=== PATIENT | female | born 1960 | race Caucasian/White ===

== ENCOUNTER 2019-02-08 21:33 | Emergency (ER) | payer SELFPAY ==
--- NOTE | 2019-02-08 22:36 | ED ---
Complex/Multi-Sys Presentation - HPI Summary HPI Summary: 58 year old female presents with fatigue for past couple days. She states that she has short of breath when she exerts herself. She has no other medical conditions. She denies a history of anemia. She denies any vaginal bleeding. No blood in her stool or dark tarry stool. She denies any chest pain. No recent illness. She is not currently getting any treatment for her basal cell carcinoma. she states that the area has been bleeding on her shoulder. She has had the mass for 16 years. - History Of Current Complaint Chief Complaint: EDGeneral Time Seen by Provider: 02/08/19 22:26 - Allergies/Home Medications Allergies/Adverse Reactions: Allergies Allergy/AdvReac Type Severity Reaction Status Date / Time No Known Allergies Allergy Verified 02/08/19 21:39 PMH/Surg Hx/FS Hx/Imm Hx Endocrine/Hematology History: Denies: Hx Anemia Respiratory History: Denies: Hx Asthma Infectious Disease History: No Infectious Disease History: Denies: Traveled Outside the [place] in Last 30 Days - Family History Known Family History: Positive: Non-Contributory - Social History Alcohol Use: None Substance Use Type: Reports: None Smoking Status (MU): Never Smoked Tobacco Review of Systems Positive: Fatigue. Negative: Fever Negative: Chest Pain Positive: Shortness Of Breath All Other Systems Reviewed And Are Negative: Yes Physical Exam Triage Information Reviewed: Yes Vital Signs On Initial Exam: Initial Vitals Temp Pulse Resp BP Pulse Ox 97.8 F 108 20 145/69 99 02/08/19 21:35 02/08/19 21:35 02/08/19 21:35 02/08/19 21:35 02/08/19 21:35 Vital Signs Reviewed: Yes Appearance: Positive: Well-Appearing Skin: Positive: Warm, Dry Head/Face: Positive: Normal Head/Face Inspection Eyes: Positive: Normal, Conjunctiva Clear ENT: Positive: Pharynx normal Respiratory/Lung Sounds: Positive: Clear to Auscultation, Breath Sounds Present Cardiovascular: Positive: Normal, RRR Abdomen Description: Positive: Nontender, Soft Bowel Sounds: Positive: Present Musculoskeletal: Positive: Normal Neurological: Positive: Normal Psychiatric: Positive: Normal Procedures - Sedation Patient Received Moderate/Deep Sedation with Procedure: No Diagnostics - Vital Signs Vital Signs Temp Pulse Resp BP Pulse Ox 02/08/19 21:35 97.8 F 108 20 145/69 99 - Laboratory Result Diagrams: 02/08/19 22:42 02/08/19 22:42 Lab Statement: Any lab studies that have been ordered have been reviewed, and results considered in the medical decision making process. Complex Multi-Symp Course/Dx Course Of Treatment: 58 year old female presents with fatigue for past couple days. She states that she has short of breath when she exerts herself. She has no other medical conditions. She denies a history of anemia. She denies any vaginal bleeding. No blood in her stool or dark tarry stool. She denies any chest pain. No recent illness. She is not currently getting any treatment for her basal cell carcinoma. On exam has mass to left shoulder. Lungs clear auscultation. Appears pale. Slightly tachycardic. Hemoglobin is 4.4. We'll give blood transfusion. patient refused to be admitted for further work up. patient will be signed out to dr pearson pending blood transfusion completion - Diagnoses Provider Diagnoses: Anemia Discharge ED - Sign-Out/Discharge Documenting (check all that apply): Sign-Out Patient Signing out patient TO: Jazmín Pearson - Discharge Plan Referrals: No Primary Care Phys,NOPCP [Primary Care Provider] -
[2019-02-08 22:56] LABS: Hematocrit 14 % (35-47); Hemoglobin 4.4 g/dL (12.0-16.0); Mean Corpuscular HGB Conc 31 g/dL (31-36); Mean Corpuscular Hemoglobin 18 pg (27-31); Mean Corpuscular Volume 59 fL (80-97); Mean Platelet Volume 6.3 fL (7.4-10.4); Platelet Count 643 10^3/uL (150-450); Red Blood Count 2.43 10^6 /uL (3.70-4.87); Red Cell Distribution Width 19 % (10-15); White Blood Count 12.1 10^3/uL (3.5-10.8)
[2019-02-08 22:59] LABS: INR 1.33 (0.82-1.09)
[2019-02-08 23:17] LABS: Albumin/Globulin Ratio 0.7 (1-3); BUN/Creatinine Ratio 17.9 (8-20); C Reactive Protein 149.48 mg/L (<8.01); EGFR African American 73.4 (>60); EGFR Non-African American 60.6 (>60); Globulin 4.3 g/dL (2-4); Potassium 3.4 mmol/L (3.5-5.0); Total Bilirubin 0.4 mg/dL (0.2-1.0); Total Protein 7.3 g/dL (6.4-8.9)
[2019-02-08 23:34] LABS: ABS Basophils 0.1 10^3/ul (0-0.2); ABS Lymphocytes 0.9 10^3/ul (1.0-4.8); ABS Monocytes 1.4 10^3/ul (0-0.8); ABS Neutrophils 9.7 10^3/ul (1.5-7.7); Eosinophil % 0.2 %; Lymphocyte % 7.8 %; Nucleated Red Blood Cells % 0.3
--- NOTE | 2019-02-09 02:36 | ED ---
Progress - Progress Note Progress Note: Pt is a signout from MUKUND Webster, pending finishing blood transfusion. Re-Evaluation - Re-Evaluation 1st re-eval Re-Evaluation Time: 05:40 Change: Improved Comment: Pt's 2nd unit of blood is finished. Pt will be d/c'ed with dx of anemia. Course/Dx - Course Course Of Treatment: Pt is a signout from MUKUND Webster, pending finishing blood transfusion. Pt finished transfusion at 0540. She refuses any other medical tx, including admission to [facility] [place] [facility] for further workup. She will be d/c'ed with dx of anemia. - Diagnoses Provider Diagnoses: Anemia Discharge ED - Sign-Out/Discharge Documenting (check all that apply): Patient Departure, Receiving Sign-Out Receiving patient FROM: Charlee Phelan - Discharge Plan Condition: Stable Disposition: HOME Patient Education Materials: Iron Deficiency Anemia (ED) Referrals: [facility] [Outside] Additional Instructions: Please follow up with your primary care physician within three days. Please return to ED for any new or worsening symptoms. - Billing Disposition and Condition Condition: STABLE Disposition: Home - Attestation Statements Document Initiated by Scribe: Yes Documenting Scribe: Alanna Gillespie Provider For Whom Mariliaibe is Documenting (Include Credential): Jazmín Pearson MD. Scribe Attestation: Alanna Oro, gayathried for Jazmín Pearson MD. on 02/09/19 at 0607. Scribe Documentation Reviewed: Yes Provider Attestation: The documentation as recorded by the mariliaibAlanna avendano accurately reflects the service I personally performed and the decisions made by Jazmín gomez MD. Status of Scribe Document: Viewed
[2019-02-09 06:06] VITALS: BP 0/0
== END 2019-02-09 05:45 | disposition home or self-care (01) ==
LOC: ED 21:33
DX: D64.9 Anemia, unspecified (principal); R53.83 Other fatigue; R06.02 Shortness of breath; R22.32 Localized swelling, mass and lump, left upper limb
CPT/HCPCS: 36415; 80053; 84484; 85025; 85610; 86140; 86850; 86900; 86901; 86922; 99284; P9040